=== PATIENT | female | born 1945 | race Caucasian/White ===

== ENCOUNTER 2020-09-09 17:15 | Observation (INO) ==
[2020-09-09] MEDS ORDERED: ONDANSETRON HCL/PF 2 MG/ML VIAL IV ONE ×2 (17:30→19:12)
[2020-09-09] MEDS ORDERED: NORMAL SALINE 1,000 ML IV ONE ×2 (17:30→17:31)
--- NOTE | 2020-09-09 17:46 | ERNOTE ---
Medical Problem HPI - Narrative Date of Service: 09/09/20 - General Time Seen by Provider: 09/09/20 17:29 Source: patient Exam Limitations: no limitations - Immun/Allergies/Home Medications Immunizations: IMMUNIZATION HX Immunizations Up to Date Yes History of Influenza Vaccine Yes Hx Pneumococcal Vaccination Yes Allergies/Adverse Reactions: Allergies azathioprine [From Imuran] Allergy (Severe, Verified 06/23/20 15:37) Hives Home Medications: HOME MEDICATIONS calcium carbonate-vitamin D3 600 mg (1,500 mg)-800 unit tablet 1 tab PO DAILY 06/02/18 [Last Taken 06/23/18] glucosamine HCl 1,500 mg tablet 1,500 mg PO DAILY 06/02/18 [Last Taken 06/23/18] prednisone 5 mg tablet 10 mg PO DAILY 03/23/19 [Last Taken Unknown] Nitrofurantoin Macrocrystal [Nitrofurantoin] 100 mg PO BID #14 cap 06/23/20 [Last Taken Unknown] Omeprazole Magnesium [Prilosec Otc] 40 mg PO DAILY 06/23/20 [Last Taken Unknown] furosemide 20 mg tablet 20 mg PO DAILY #90 tab 06/30/20 [Last Taken Unknown] hospital bed with trapeze 0 .ROUTE .MEDSUPPLY #1 ea 07/05/20 [Last Taken Unknown] lidocaine 5 % topical patch 1 patch TP DAILY #15 ea 07/05/20 [Last Taken Unknown] Wheelchair 0 .ROUTE .MEDSUPPLY #1 ea 07/24/20 [Last Taken Unknown] levothyroxine 112 mcg tablet 112 mcg PO DAILY #90 tab 08/03/20 [Last Taken Unknown] metoprolol succinate 100 mg tablet,extended release 24 hr See Rx Instructions .ROUTE .COMPLEX #90 tab 08/29/20 [Last Taken Unknown] lovastatin 20 mg tablet 20 mg PO DAILY #90 tab 09/01/20 [Last Taken Unknown] - History of Present History Narrative: This patient is a 74-year-old female who arrived by ambulance for generalized weakness. She has a history of metastatic colon cancer. She had chemo on Friday. She says that she feels exhausted and says that she is too weak to walk. She reportedly fell last night and did not hurt herself. She has been exhausted for 2 weeks. The ambulance personnel feel the family can no longer take care of her. Review of Systems - Review of Systems Constitutional: Present: weakness. Absent: fever EYE: Absent: vision changes ENT: Present: nasal drainage. Absent: ear pain, nose congestion, sore throat Respiratory: Present: cough - Dry. Absent: shortness of breath Cardiology: Present: chest pain - She has lower chest or upper abdominal pain with breathing.. Absent: syncope Gastrointestinal/Abdominal: Present: nausea, diarrhea - For the past 2 months., abdominal pain - She has lower chest or upper abdominal pain with breathing.. Absent: vomiting Genitourinary: Absent: frequency, pain, dysuria, hematuria Musculoskeletal: Present: no symptoms reported Skin: Absent: rash Neurological: Present: dizziness/light-headedness - With standing. Absent: headache Endocrine: Present: other - No diabetes Hematologic/Lymphatic: Present: other - No active bleeding Psych: Present: no symptoms reported Medical History (Last Reviewed 09/09/20 @ 17:43 by Efrem Lorenzo MD) Cecum mass Sleep apnea Fibrocystic breast disease Onset Date: Unknown Hiatal hernia Onset Date: Unknown Hyperlipidemia Onset Date: Unknown Hypertension Onset Date: Unknown Hypothyroidism Onset Date: ~10/17/15 Myasthenia gravis Onset Date: ~04/03/18 Ocular myasthenia gravis Onset Date: Unknown Fracture Onset Date: ~1993 closed, right toe and knee due to a fall from ladder Helicobacter pylori (H. pylori) Onset Date: Unknown Uterovaginal prolapse, incomplete Onset Date: Unknown Surgical History: Surgical History (Last Reviewed 09/09/20 @ 17:43 by Efrem Lorenzo MD) History of colonoscopy Onset Date: 06/24/18 07/04/09 Dr Prado- sigmoid diverticulosis, colonic mucosal fragments, non- specific acuter inflammation ileocecal valve. 08/30/13 Johan- diverticulosis. 06/24/18 Louie-diverticulosis. Recheck 5-10 yrs. History of dilation and curettage Onset Date: ~1975 History of esophagogastroduodenoscopy (EGD) Onset Date: 06/24/18 08/30/13 Johan-w/balloon dilation of distal esophagus to 20mm. Erosive gastritis. 06/24/18 Louie-clotest negative, benign reactive gastropathy/chemical gastritis, severely inflamed GE junction mucosa w/focal Caro's esophagus no dysplasia. History of left breast biopsy Onset Date: ~1990 History of tonsillectomy Onset Date: ~1949 History of varicose vein stripping Onset Date: ~1997 Family History: Family History (Last Reviewed 09/09/20 @ 17:43 by Efrem Lorenzo MD) Father , age 59-[place] Heart disease Mother , age 91-old age Osteoporosis Glaucoma Hypothyroidism Brother , age 60-stroke, stomach ca Cancer stomach Diabetes CVA (cerebral vascular accident) Sister , age 35-HIV No problems noted. Sister Cancer 2 sisters-both with colon cancer (dx age 70's), and breast cancer (dx age 70's) Sister Polymyalgia rheumatica Brother , age age 60's-stroke, prostate cancer Cancer prostate CVA (cerebral vascular accident) Diabetes Brother , 1 age 41-accident 1 as No problems noted. Social History: (Last Reviewed 09/09/20 @ 17:43 by Efrem Lorenzo MD) Social History: Marital status: household members: spouse number of children: 1 current occupational status: retired Service: No Tobacco: Smoking Status: Never smoker Alcohol: alcohol intake: former alcohol intake frequency: a few times a week Substance Use: substance use type: does not use Dietary Habits: caffeine: Yes Personal Safety: victim of physical abuse: No victim of emotional abuse: No Physical Exam - Physical Exam General Appearance: Present: wd/wn, alert, other - She appears to not feel well. She is lying on the table with her eyes closed. She is speaking in full sentences. Head Exam: Present: normal inspection, no evidence of injury Eye Exam: Normal inspection: bilateral Ears, Nose, Throat: Present: normal ENT inspection Neck: Present: normal inspection, supple. Absent: lymphadenopathy (R), lymphadenopathy (L) Respiratory: Present: no respiratory distress, normal breath sounds, lungs clear Cardiovascular/Chest: Present: no murmur, tachycardia Gastrointestinal/Abdominal: Present: normal bowel sounds, nondistended, soft, no organomegaly, tenderness - Of the upper abdomen Back Exam: Present: normal inspection Extremity Exam: Present: normal inspection, no edema. Absent: non-tender - Diffuse tenderness of the lower legs. Neurological Exam: Present: alert, oriented, no motor/sensory deficits - No gross lateralizing deficit.. Absent: normal mood/affect - Sickly affect Skin Exam: Present: normal color, warm/dry Progress - Date and Time Seen: Date and Time: 09/09/20 19:28 After the labs were done, I spoke with the patient. Her was in attendance. He indicated that she is to be admitted to the [facility] on Friday. He indicated that they can take care of her at home. She indicated that she is too weak to take care of herself at home. I discussed a trial of ambulation after the fluids and potassium. She said there is no way she would be able to. I spoke with Dr. Finn who accepted the patient for observation. - Results and Orders Patient's Lab Results:: I have reviewed the patient's lab results. Results and Orders: Laboratory Tests 09/09/20 09/09/20 09/09/20 17:48 17:48 18:38 WBC 4.1 RBC 4.84 Hgb 14.4 Hct 44.8 MCV 92.6 MCH 29.8 MCHC 32.1 RDW 27.0 H Plt Count 181 MPV 9.7 Immature Gran % (Auto) 1.50 H Immature Gran # (Auto) 0.06 H Neutrophils % 32.0 L Lymphocytes % 62.4 H Monocytes % 2.9 Eosinophils % 0.2 Basophils % 1.0 Nucleated RBC % 0.0 Neutrophils # 1.3 Lymphocytes # 2.56 Monocytes # 0.1 Eosinophils # 0.0 Absolute Basophils 0.0 Sodium 134 Plasma Sodium 134 Potassium 3.3 L D Chloride 101 Carbon Dioxide 24.3 Anion Gap 12.0 BUN 8 Creatinine 0.70 Est GFR (Non-Af Amer) 86 D BUN/Creatinine Ratio 11.4 Random Glucose 122 H Calcium 8.5 Calcium Adj for Albumin 9.4 Total Bilirubin 0.8 AST 26 ALT 22 Alkaline Phosphatase 126 Total Protein 6.0 L Albumin 2.5 L Lipase 95 Urine Color Yellow Urine Appearance Slightly cloudy Urine pH 6.0 Ur Specific [place] 1.020 Urine Protein 15 H Urine Glucose (UA) Negative Urine Ketones Negative Urine Blood 5 H Urine Nitrate Negative Urine Bilirubin 3 H Urine Ictotest Positive H Prot Sulfosalicylic Acd 1+ Urine Urobilinogen Normal Ur Leukocyte Esterase 25 H Urine RBC None seen Urine WBC >50 H Ur Epithelial Cells None seen Urine Bacteria 1+ H Urine Culture Comments Culture to follow - Vital Signs Patient's Vital Signs:: I have reviewed the patient's vital signs. Vital Signs: Vital Signs 09/09/20 17:27 Temperature 36.8 C Pulse Rate 101 H Respiratory Rate 17 Blood Pressure 145/89 O2 Sat by Pulse Oximetry 94 - EKG EKG #1 EKG read: Interp. by me EKG Comments: Sinus rhythm Rate [address]-T wave abnormality As compared to an EKG dated 11/15/2004, there are inferior nonspecific changes. - X-Ray X-Ray #1 X-Ray: chest Interpretation: Interp. by me X-ray Comments: No acute infiltrate. Chronic elevated right hemidiaphragm. Departure Clinical Impression: Generalized weakness, Metastatic colon cancer to liver, Urinary tract infection - Departure Disposition: Still a patient Condition: Stable Referrals: Iona Amato MD [Primary Care Provider] -
[2020-09-09 17:54] LABS: Hematocrit 44.8 % (37.0-47.0); Hemoglobin 14.4 gm/dL (12.5-16.0); Mean Cell Volume 92.6 fl (78-100); Mean Corpuscular Hemoglobin 29.8 pg (27-31); Mean Corpuscular Hgb Conc 32.1 g/dl (32-36); Mean Platelet Volume 9.7 fl (8-12.5); Neutrophil # 1.3 K/mm3 (1.3-6.0); Platelet Count 181 K/mm3 (150-450); Red Blood Count 4.84 M/mm3 (4.2-5.4); White Blood Count 4.1 K/mm3 (4.0-10.5)
[2020-09-09 18:06] LABS: Albumin * 2.5 gm/dl (3.4-5.0); BUN/Creatinine Ratio 11.4 (9.0-21.6); Bilirubin, Total 0.8 mg/dL (0.0-1.1); Ca. Corrected For Albumin 9.4 mg/dL (8.4-10.2); Calcium * 8.5 mg/dL (7.9-10.9); Carbon Dioxide 24.3 mmol/L (24-32.6); Potassium 3.3 mmol/L (3.4-4.6)
[2020-09-09 19:05] LABS: Urine Appearance Slightly Cloudy (CLEAR); Urine Color Yellow
[2020-09-09 19:06] LABS: Urine Bilirubin 3 mg/dl (NEGATIVE); Urine Blood 5 /ul (NEGATIVE); Urine Ketone Negative (NEGATIVE); Urine Nitrite Negative (NEGATIVE); Urine Protein 15 mg/dL (NEGATIVE); Urine Urobilinogen Normal (NORMAL)
[2020-09-09 19:07] LABS: Urine WBC >50 /hpf (0-5)
[2020-09-09 19:08] LABS: Urine Bacteria 1+; Urine RBC None Seen /hpf (0-5)
[2020-09-09] MEDS ORDERED: POTASSIUM CHLORIDE IN WATER 100 ML IV ONE (19:10)
[2020-09-10] MEDS: PYRIDOSTIGMINE BROMIDE 60 MG TABLET PO SCH (17:00)
--- NOTE | 2020-09-10 19:23 | HP ---
Chief Complaint - Chief Complaint Date of Service: 09/10/20 Time of Service: 08:30 Chief Complaint: weakness History of Present Illness: Meenu is a 74 yo female with stage 4 colon cancer currently getting IV chemotherapy. She has been living at home and has been unable to care for herself and her has been unable to help with her cares. She is unable to make it to the bathroom in time and will have a bowel movement in her bed. She was brought to the [facility] ER by her and evaluated. She has no significant electrolyte abnormalities and no acute changes. She and her report she cannot go back to the house as he is unable to care for her. He reports that if she is discharged from the hospital to home that he will not bring her home. Medical History (Last Reviewed 09/10/20 @ 00:13 by Madhuri Shaver RN) Cecum mass Sleep apnea Fibrocystic breast disease Onset Date: Unknown Hiatal hernia Onset Date: Unknown Hyperlipidemia Onset Date: Unknown Hypertension Onset Date: Unknown Hypothyroidism Onset Date: ~10/17/15 Myasthenia gravis Onset Date: ~04/03/18 Ocular myasthenia gravis Onset Date: Unknown Fracture Onset Date: ~1993 closed, right toe and knee due to a fall from ladder Helicobacter pylori (H. pylori) Onset Date: Unknown Uterovaginal prolapse, incomplete Onset Date: Unknown Surgical History: Surgical History (Last Reviewed 09/10/20 @ 00:13 by Madhuri Shaver RN) History of colonoscopy Onset Date: 06/24/18 07/04/09 Dr Prado- sigmoid diverticulosis, colonic mucosal fragments, non- specific acuter inflammation ileocecal valve. 08/30/13 Johan- diverticulosis. 06/24/18 Louie-diverticulosis. Recheck 5-10 yrs. History of dilation and curettage Onset Date: ~1975 History of esophagogastroduodenoscopy (EGD) Onset Date: 06/24/18 08/30/13 Johan-w/balloon dilation of distal esophagus to 20mm. Erosive gastritis. 06/24/18 Louie-clotest negative, benign reactive gastropathy/chemical gastritis, severely inflamed GE junction mucosa w/focal Caro's esophagus no dysplasia. History of left breast biopsy Onset Date: ~1990 History of tonsillectomy Onset Date: ~1949 History of varicose vein stripping Onset Date: ~1997 Family History: Family History (Last Reviewed 09/10/20 @ 00:13 by Madhuri Shaver RN) Father , age 59-[place] Heart disease Mother , age 91-old age Osteoporosis Glaucoma Hypothyroidism Brother , age 60-stroke, stomach ca Cancer stomach Diabetes CVA (cerebral vascular accident) Sister , age 35-HIV No problems noted. Sister Cancer 2 sisters-both with colon cancer (dx age 70's), and breast cancer (dx age 70's) Sister Polymyalgia rheumatica Brother , age age 60's-stroke, prostate cancer Cancer prostate CVA (cerebral vascular accident) Diabetes Brother , 1 age 41-accident 1 as infant No problems noted. Social History: (Last Reviewed 09/10/20 @ 00:13 by Madhuri Shaver RN) Social History: Marital status: household members: spouse number of children: 1 current occupational status: retired Service: No Tobacco: Smoking Status: Never smoker Alcohol: alcohol intake: former alcohol intake frequency: a few times a week Substance Use: substance use type: does not use Dietary Habits: caffeine: Yes Personal Safety: victim of physical abuse: No victim of emotional abuse: No Review Of Systems (GEN) - Review of Systems Generalized/Overall Review: Present: Weakness, Fatigue. Absent: Chills, Fever EENTM: Present: No Symptoms Reported Respiratory: Present: No Symptoms Reported Cardiac: Absent: Chest Pain, Syncope Abdominal: Present: Nausea, Diarrhea. Absent: Vomiting, Abdominal Pain Genitourinary: Absent: Burning, Frequency Neurological: Present: Weakness Skin: Present: No Symptoms Reported Endocrine: Present: No Symptoms Reported Immunizations: IMMUNIZATION HX Immunizations Up to Date Yes History of Influenza Vaccine Yes Hx Pneumococcal Vaccination Yes Allergies/Adverse Reactions: Allergies Allergy/AdvReac Type Severity Reaction Status Date / Time azathioprine [From Imuran] Allergy Severe Hives Verified 06/23/20 15:37 Home Medications: HOME MEDICATIONS calcium carbonate-vitamin D3 600 mg (1,500 mg)-800 unit tablet 1 tab PO DAILY 06/02/18 [Last Taken 06/23/18] glucosamine HCl 1,500 mg tablet 1,500 mg PO DAILY 06/02/18 [Last Taken 06/23/18] prednisone 5 mg tablet 10 mg PO DAILY 03/23/19 [Last Taken Unknown] Nitrofurantoin Macrocrystal [Nitrofurantoin] 100 mg PO BID #14 cap 06/23/20 [Last Taken Unknown] Omeprazole Magnesium [Prilosec Otc] 40 mg PO BID 06/23/20 [Last Taken Unknown] furosemide 20 mg tablet 20 mg PO DAILY #90 tab 06/30/20 [Last Taken Unknown] hospital bed with trapeze 0 .ROUTE .MEDSUPPLY #1 ea 07/05/20 [Last Taken Unknown] lidocaine 5 % topical patch 1 patch TP DAILY #15 ea 07/05/20 [Last Taken Unknown] Wheelchair 0 .ROUTE .MEDSUPPLY #1 ea 07/24/20 [Last Taken Unknown] levothyroxine 112 mcg tablet 112 mcg PO DAILY #90 tab 08/03/20 [Last Taken Unknown] metoprolol succinate 100 mg tablet,extended release 24 hr See Rx Instructions .ROUTE .COMPLEX #90 tab 08/29/20 [Last Taken Unknown] lovastatin 20 mg tablet 20 mg PO DAILY #90 tab 09/01/20 [Last Taken Unknown] Mycophenolate Mofetil [Cellcept] 1,000 mg PO BID 09/09/20 [Last Taken Unknown] Potassium Chloride [Klor-Con] 20 meq PO DAILY 09/09/20 [Last Taken Unknown] Prochlorperazine Maleate [Compazine] 10 mg PO QID PRN 09/09/20 [Last Taken Unknown] Pyridostigmine [place] [Mestinon] 60 mg PO TID 09/09/20 [Last Taken Unknown] Exam - Exam Vital Signs: Vital Signs - Last Taken Temp 36.7 C 09/10/20 19:00 Pulse 83 09/10/20 19:00 Resp 18 09/10/20 19:00 BP 139/74 09/10/20 19:00 Pulse Ox 94 09/10/20 10:00 Constitutional: Present: Alert, Oriented x3, Cooperative ENT Exam: Present: hearing grossly normal Eye Exam: bilateral eye: normal inspection Respiratory: Present: lungs clear, normal breath sounds, no respiratory distress Cardiovascular/Chest: Present: regular rate, rhythm, no edema, no murmur Peripheral Pulses: radial (R): 2+, radial (L): 2+ Abdomen: Present: Normal bowel sounds, soft, nontender Skin Exam: Present: normal color, warm/dry, no cyanosis Eye contact: Present: cooperative, good eye contact, normal speech Thoughts: Present: normal thought pattern, no apparent hallucination Diagnostic Studies: Abnormal Lab Results 09/09/20 Range/Units 18:38 Urine Protein 15 H (NEGATIVE) mg/dL Urine Blood 5 H (NEGATIVE) /ul Urine Bilirubin 3 H (NEGATIVE) mg/dl Urine Ictotest Positive H (NEGATIVE) Ur Leukocyte Esterase 25 H (NEGATIVE) /ul Urine WBC >50 H (0-5) /hpf Urine Bacteria 1+ H (NONE) Microbiology 09/09/20 18:40 Urine Culture - Preliminary Urine,Catheterized No Growth Laboratory Results WBC 4.1 K/mm3 (4.0-10.5) 09/09/20 17:48 RBC 4.84 M/mm3 (4.2-5.4) 09/09/20 17:48 Hgb 14.4 gm/dL (12.5-16.0) 09/09/20 17:48 Hct 44.8 % (37.0-47.0) 09/09/20 17:48 MCV 92.6 fl (78-100) 09/09/20 17:48 MCH 29.8 pg (27-31) 09/09/20 17:48 MCHC 32.1 g/dl (32-36) 09/09/20 17:48 RDW 27.0 % (11.5-14.0) H 09/09/20 17:48 Plt Count 181 K/mm3 (150-450) 09/09/20 17:48 MPV 9.7 fl (8-12.5) 09/09/20 17:48 Immature Gran % (Auto) 1.50 % (0.001-0.429) H 09/09/20 17:48 Immature Gran # (Auto) 0.06 K/mm3 (0.000-0.0310) H 09/09/20 17:48 Neutrophils % 32.0 % (42-75.0) L 09/09/20 17:48 Lymphocytes % 62.4 % (20-51) H 09/09/20 17:48 Monocytes % 2.9 % (0.0-9) 09/09/20 17:48 Eosinophils % 0.2 % (0.0-3.0) 09/09/20 17:48 Basophils % 1.0 % (0.0-1.0) 09/09/20 17:48 Nucleated RBC % 0.0 k/mm3 (0-1) 09/09/20 17:48 Neutrophils # 1.3 K/mm3 (1.3-6.0) 09/09/20 17:48 Lymphocytes # 2.56 k/mm3 (1.5-3.5) 09/09/20 17:48 Monocytes # 0.1 k/mm3 (0.0-1.0) 09/09/20 17:48 Eosinophils # 0.0 k/mm3 (0.0-0.7) 09/09/20 17:48 Absolute Basophils 0.0 k/mm3 (0.0-0.1) 09/09/20 17:48 Sodium 134 mmol/L (132-142) 09/09/20 17:48 Plasma Sodium 134 mmol/L (130-142) 09/09/20 17:48 Potassium 3.3 mmol/L (3.4-4.6) L D 09/09/20 17:48 Chloride 101 mmol/L (97-106) 09/09/20 17:48 Carbon Dioxide 24.3 mmol/L (24-32.6) 09/09/20 17:48 Anion Gap 12.0 mmol/L (6.8-13.8) 09/09/20 17:48 BUN 8 mg/dL (3-23) 09/09/20 17:48 Creatinine 0.70 mg/dL (0.4-1.4) 09/09/20 17:48 Est GFR (Non-Af Amer) 86 mL/min (60-130) D 09/09/20 17:48 BUN/Creatinine Ratio 11.4 (9.0-21.6) 09/09/20 17:48 Random Glucose 122 mg/dL (70-110) H 09/09/20 17:48 Calcium 8.5 mg/dL (7.9-10.9) 09/09/20 17:48 Calcium Adj for Albumin 9.4 mg/dL (8.4-10.2) 09/09/20 17:48 Total Bilirubin 0.8 mg/dL (0.0-1.1) 09/09/20 17:48 AST 26 U/L (0-48) 09/09/20 17:48 ALT 22 U/L (19-67) 09/09/20 17:48 Alkaline Phosphatase 126 U/L (50-170) 09/09/20 17:48 Total Protein 6.0 gm/dL (6.2-8.2) L 09/09/20 17:48 Albumin 2.5 gm/dl (3.4-5.0) L 09/09/20 17:48 Lipase 95 U/L (73-393) 09/09/20 17:48 Urine Color Yellow 09/09/20 18:38 Urine Appearance Slightly cloudy (CLEAR) 09/09/20 18:38 Urine pH 6.0 pH (5.0-7.0) 09/09/20 18:38 Ur Specific [place] 1.020 SP.GR. (1.005-1.010) 09/09/20 18:38 Urine Protein 15 mg/dL (NEGATIVE) H 09/09/20 18:38 Urine Glucose (UA) Negative mg/dL (NEGATIVE) 09/09/20 18:38 Urine Ketones Negative mg/dL (NEGATIVE) 09/09/20 18:38 Urine Blood 5 /ul (NEGATIVE) H 09/09/20 18:38 Urine Nitrate Negative (NEGATIVE) 09/09/20 18:38 Urine Bilirubin 3 mg/dl (NEGATIVE) H 09/09/20 18:38 Urine Ictotest Positive (NEGATIVE) H 09/09/20 18:38 Prot Sulfosalicylic Acd 1+ mg/dL (0) 09/09/20 18:38 Urine Urobilinogen Normal EU/dl (NORMAL) 09/09/20 18:38 Ur Leukocyte Esterase 25 /ul (NEGATIVE) H 09/09/20 18:38 Urine RBC None seen /hpf (0-5) 09/09/20 18:38 Urine WBC >50 /hpf (0-5) H 09/09/20 18:38 Ur Epithelial Cells None seen /hpf (0-5) 09/09/20 18:38 Urine Bacteria 1+ (NONE) H 09/09/20 18:38 Urine Culture Comments Culture to follow 09/09/20 18:38 SARS-CoV-2 (PCR) Not detected (NotDetected) 09/09/20 19:41 Assessment/Plan - Narrative Narrative: Meenu is a 74 yo female with metastatic cancer of colon. She has generalized weakness and fatigue and is unable to complete ADLs. She does not have family able to care for her at home. Her refuses to take her home as he reports he cannot take care of her. We are unable to get a retirement or living facility to accept her on the weekend. Will have case management associate work with facilities vs help for the at home vs hospice tomorrow. Will consult therapies to evaluate tomorrow. Will admit to observation. - Assessment/Plan (1) Generalized weakness Problem: Acute (2) Metastatic colon cancer to liver Problem: Acute
[2020-09-10] MEDS ORDERED: SIMVASTATIN 10 MG TABLET PO SCH (21:00)
[2020-09-11] MEDS ORDERED: LEVOTHYROXINE SODIUM 112 MCG TABLET PO SCH ×2 (07:00→10:00)
[2020-09-11] MEDS: PYRIDOSTIGMINE BROMIDE 60 MG TABLET PO SCH (08:12)
[2020-09-11] MEDS ORDERED: ONDANSETRON HCL/PF 2 MG/ML VIAL IV PRN (08:44)
[2020-09-11] MEDS ORDERED: PROCHLORPERAZINE MALEATE 10 MG TABLET PO PRN (08:45)
[2020-09-11] MEDS ORDERED: LORAZEPAM 2 MG/ML ORAL.CONC PO PRN (08:47)
[2020-09-11] MEDS ORDERED: MORPHINE SULFATE 2 MG/ML DISP.SYRIN IV PRN (08:47)
[2020-09-11] MEDS ORDERED: LIDOCAINE 1 PATCH ADH..PATCH TP SCH (09:00)
[2020-09-11] MEDS ORDERED: POTASSIUM CHLORIDE 20 MEQ TABLET.SA PO SCH (09:00)
[2020-09-11] MEDS ORDERED: LOVASTATIN 20 MG PO SCH (09:00)
[2020-09-11] MEDS ORDERED: MYCOPHENOLATE MOFETIL 500 MG TABLET PO SCH (09:00)
[2020-09-11] MEDS ORDERED: METOPROLOL SUCCINATE 100 MG TABLET.SA PO SCH (09:00)
[2020-09-11] MEDS ORDERED: FUROSEMIDE 20 MG TABLET PO SCH ×2 (09:00→11:00)
[2020-09-11] MEDS ORDERED: PYRIDOSTIGMINE BROMIDE 60 MG TABLET PO SCH (09:00)
[2020-09-11] MEDS ORDERED: PANTOPRAZOLE SODIUM 40 MG TABLET.EC PO SCH (10:00)
--- NOTE | 2020-09-11 11:45 | DS ---
(1) Generalized weakness Problem: Acute (2) Metastatic colon cancer to liver Problem: Chronic Date of Discharge:: 09/11/20 Hospital Course: Meenu was admitted to the hospital due to worsening weakness and inability to complete ADLs and unsafe at home. Her family was unable to care for her and she was too weak. She has stage 4 colon cancer with mets and states today that she is done fighting. She met with hospice and will be discharged to [facility] with hospice. Comfort care medications will be given as needed. Procedures Performed: none Results and Findings: Lab Pending Results 09/09/20 17:48: WBC 4.1, RBC 4.84, Hgb 14.4, Hct 44.8, MCV 92.6, MCH 29.8, MCHC 32.1, RDW 27.0 H, Plt Count 181, MPV 9.7, Immature Gran % (Auto) 1.50 H, Immature Gran # (Auto) 0.06 H, Neutrophils % 32.0 L, Lymphocytes % 62.4 H, Monocytes % 2.9, Eosinophils % 0.2, Basophils % 1.0, Nucleated RBC % 0.0, Neutrophils # 1.3, Lymphocytes # 2.56, Monocytes # 0.1, Eosinophils # 0.0, Absolute Basophils 0.0 09/09/20 17:48: Sodium 134, Plasma Sodium 134, Potassium 3.3 L D, Chloride 101, Carbon Dioxide 24.3, Anion Gap 12.0, BUN 8, Creatinine 0.70, Est GFR (Non-Af Amer) 86 D, BUN/Creatinine Ratio 11.4, Random Glucose 122 H, Calcium 8.5, Calcium Adj for Albumin 9.4, Total Bilirubin 0.8, AST 26, ALT 22, Alkaline Phosphatase 126, Total Protein 6.0 L, Albumin 2.5 L, Lipase 95 09/09/20 18:38: Urine Color Yellow, Urine Appearance Slightly cloudy, Urine pH 6.0, Ur Specific [place] 1.020, Urine Protein 15 H, Urine Glucose (UA) Negative, Urine Ketones Negative, Urine Blood 5 H, Urine Nitrate Negative, Urine Bilirubin 3 H, Urine Ictotest Positive H, Prot Sulfosalicylic Acd 1+, Urine Urobilinogen Normal, Ur Leukocyte Esterase 25 H, Urine RBC None seen, Urine WBC >50 H, Ur Epithelial Cells None seen, Urine Bacteria 1+ H, Urine Culture Comments Culture to follow 09/09/20 19:41: SARS-CoV-2 (PCR) Not detected Discharge Location: [facility] Disposition: Hospice Home Home Health Agency: [facility] Hospice Condition: Poor Level of Care: ICF Discharge Activity: Activity as tolerated Discharge Diet: General/regular food Referrals: Iona Amato MD [Primary Care Provider] - (Video Appointment as needed.) Problem Oriented Discharge Instructions to Patient/Family: Hospice Additional Patient Instructions (free text): To [facility] ICF with [facility] Hospice to follow there. Please call and fax discharge information to them both. Prescriptions (Any new or edited meds): Lorazepam [Ativan Intensol] 2 mg PO QID PRN #60 oral.conc PRN Reason: anxiety/restlessness Transmission Status: Sent to [facility] Morphine Sulfate [Morphine Sulfate Conc. Oral Solution] 5 mg PO Q1H #30 ml Transmission Status: Sent to [facility] Ondansetron [Zofran Odt] 8 mg PO Q8H PRN #60 tab PRN Reason: Nausea Transmission Status: Pending to [facility] Complete Home Medications List: Complete Home Medication List: furosemide 20 mg tablet 20 mg PO DAILY #90 tab 06/30/20 lidocaine 5 % topical patch 1 patch TP DAILY #15 ea 07/05/20 Prochlorperazine Maleate [Compazine] 10 mg PO QID PRN 09/09/20 Lorazepam [Ativan Intensol] 2 mg PO QID PRN #60 oral.conc 09/11/20 Morphine Sulfate [Morphine Sulfate Conc. Oral Solution] 5 mg PO Q1H #30 ml 09/11/20 Ondansetron [Zofran Odt] 8 mg PO Q8H PRN #60 tab 09/11/20 Forms: Patient Portal Registration
[2020-09-11 13:57] VITALS: BP 124/73
== END 2020-09-11 12:15 | disposition hospice, home (50) ==
LOC: ER 17:15 → MS 17:15
PROVIDERS: ADMIT Family Medicine; ATTEND Family Medicine